=== PATIENT | male | born 1945 | race African-American/Black ===

== ENCOUNTER 2021-01-19 08:15 | Outpatient (CLI) | payer OTHER ==
[2021-01-19 10:53] LABS: SARS-CoV-2 NAA Rapid Test Not Detected (NotDetected)
== END 2021-01-19 08:16 | disposition home or self-care (01) ==
LOC: CSHLAB 08:15
PROVIDERS: ATTEND Surgery
DX: Z20.822 Contact with and (suspected) exposure to COVID-19 (principal); C34.81 Malignant neoplasm of overlapping sites of right bronchus and lung
CPT/HCPCS: U0002

== ENCOUNTER 2021-01-20 06:04 | Day surgery (SDC) | payer OTHER ==
[2021-01-19 09:26] VITALS: BMI 16.0
[2021-01-20] MEDS ORDERED: Lidocaine 1% MPF 2 ML VIAL ONE (07:16)
[2021-01-20] MEDS ORDERED: Fentanyl 100 MCG/2 ML VIAL ONE (07:50)
[2021-01-20] MEDS ORDERED: PROPOFOL 20 ML ONE (07:50)
[2021-01-20] MEDS ORDERED: Lidocaine 1% PF 5 ML VIAL ONE (07:51)
[2021-01-20] MEDS ORDERED: EPINEPHrine 1 MG/ML AMP ONE (07:54)
[2021-01-20] MEDS ORDERED: Bupivacaine 0.25% HCL 30 ML VIAL ONE (07:54)
[2021-01-20] MEDS ORDERED: PHENYLEPHRINE-NS 100 MCG/ML 10 ML SYRINGE ONE (08:28)
[2021-01-20] MEDS ORDERED: Dexamethasone 20 MG/5 ML VIAL ONE (08:29)
[2021-01-20] MEDS ORDERED: HYDROcodone/Acetaminophen 5/325 mg Tablet PO PRN (08:58)
== END 2021-01-20 10:40 | disposition home or self-care (01) ==
LOC: CSHSDC 06:04
PROVIDERS: ATTEND Surgery
DX: C34.81 Malignant neoplasm of overlapping sites of right bronchus and lung (principal); Z87.891 Personal history of nicotine dependence
CPT/HCPCS: 76000; C1788; J0171; J0690; J1100; J1642; J2704; J3010; S0020

== ENCOUNTER 2021-10-07 13:24 | Inpatient (IN) | payer OTHER, MEDICAID ==
[2021-10-07 13:52] LABS: #Basophils 0.1 10x3/uL (0.0-0.2); #Eosinphils 0.5 10x3/uL (0.0-0.5); #Monocytes 2.1 10x3/uL (0.0-1.1); #Neutrophils 9.1 10x3/uL (1.5-8.4); %Basophils 0.4 % (0.0-2.0); %Eosinophils 3.4 % (0.0-6.0); %Lymphocytes 21.1 % (18.0-47.0); %Monocytes 14.2 % (0.0-10.0); %Neutrophils 60.4 % (40.0-75.0); Hemoglobin 9.5 g/dL (13.5-17.5); Mean Corpuscular HGB CONC 35.1 g/dL (32.0-36.0); Mean Corpuscular Hemoglobin 31.9 pg (27.0-33.0); Mean Corpuscular Volume 90.9 fl (81.2-95.1); Mean Platelet Volume 8.6 fl (7.4-10.4); Platelet Count 266 10x3/uL (150-450); RBC Distribution Width 13.6 % (11.5-14.5); Red Blood Cell (RBC) Count 2.98 10x6/uL (4.32-5.72)
[2021-10-07] MEDS ORDERED: Ondansetron PF 4 MG/2 ML Vial ONE (13:54)
[2021-10-07 14:05] LABS: ALT (SGPT) 97 U/L (8-55); AST (SGOT) 208 U/L (5-34); Albumin 3.7 g/dL (3.4-4.8); Alkaline Phosphatase 517 U/L (40-110); Anion Gap 19 mmol/L (10-20); BUN (Urea Nitrogen) 10 mg/dL (8.4-25.7); Bilirubin, Total 1.3 mg/dL (0.2-1.2); Calc. Creatinine Clearance 0 mL/min (70-130); Calcium 9.5 mg/dL (7.8-10.44); Carbon Dioxide 24 mmol/L (23-31); Chloride 95 mmol/L (98-107); Globulin 3.3 g/dL (2.4-3.5); Glucose 62 mg/dL (83-110); Lipase 36 U/L (8-78); Potassium 3.8 mmol/L (3.5-5.1); Sodium 134 mmol/L (136-145)
[2021-10-07 16:03] LABS: Bilirubin Neg (Negative); Blood, Urine 25 (Negative); Clarity Slightly Cloudy (Clear); Glucose, Urine (Dipstick) Normal (Negative); Ketone, Urine 150 mg/dL (Negative); Leukocyte Negative (Negative); Nitrite Negative (Negative); Protein, Urine (Dipstick) Negative (Neg-Trace); Urobilinogen Normal mg/dL (Less than 2)
[2021-10-07] MEDS ORDERED: Cefepime 2 GM VIAL ONE (16:04)
[2021-10-07 16:11] LABS: Bacteria/HPF None Seen HPF (None Seen); Squamous Epithelial 0-3 HPF (0-3); WBC/HPF 0-3 HPF (0-3)
[2021-10-07] MEDS ORDERED: Vancomycin HCl 750 MG in Sodium Chloride 0.9% 250 ML 250 ML IVPB SCH (16:15)
[2021-10-07] MEDS ORDERED: Furosemide 40 MG/4 ML VIAL ONE (17:11)
[2021-10-07 18:12] LABS: Actual Bicarbonate (HCO3a) 16.3 mEq/L (22-28); CO2 Tension 32.9 mmHg (35.0-45.0); Calcium, Ionized (arterial) 1.11 mmol/L (1.12-1.30); Carboxyhemoglobin (COHb) 0.5 gm% (0.0-3.0); Hemoglobin (Hb) 10.8 g/dL (14.0-18.0); O2 Tension (PaO2), arterial 366.4 mmHg (> 70.0); Potassium - ABG Lab 3.7 mmol/L (3.70-5.30); Puncture Site RRA; pH, Arterial 7.31 (7.35-7.45)
[2021-10-07 18:15] LABS: ALV-art Gradient 305.475 mmHg (0-20)
[2021-10-07] MEDS ORDERED: Promethazine HCl 25 MG/ML VIAL ONE (18:19)
[2021-10-07] MEDS ORDERED: methylPREDNISolone Sod Succ/PF 125 MG/2 ML VIAL ONE (19:15)
[2021-10-07] MEDS ORDERED: Ondansetron PF 4 MG/2 ML Vial IVP PRN (19:24)
[2021-10-07] MEDS ORDERED: Acetaminophen 650 MG Suppository PR PRN (19:24)
[2021-10-07] MEDS ORDERED: Acetaminophen 325 MG TAB PO PRN (19:24)
[2021-10-07] MEDS ORDERED: Dextrose 5%-Lactated Ringers 1,000 ML IV SCH (19:30)
[2021-10-07] MEDS ORDERED: Dextrose 50% Abboject 50 ML SYRINGE ONE (20:50)
[2021-10-07] MEDS ORDERED: Famotidine/PF 20 mg/2ml Vial SLOW IVP SCH (21:00)
[2021-10-07 21:43] LABS: Legionella Urinary Ag Negative (Negative); Strep pneumo Urine Ag NEGATIVE (NEGATIVE)
[2021-10-07 21:48] LABS: SARS-CoV-2 NAA Rapid Test Not Detected (NotDetected)
[2021-10-07] MEDS ORDERED: Piperacillin/Tazobactam 3.375 GM in Sodium Chloride 0.9% 100 ML IVPB SCH (22:00)
[2021-10-08] MEDS: methylPREDNISolone Sod Succ 40 MG VIAL IVP SCH ×2 (00:40→06:06)
[2021-10-08] MEDS ORDERED: Dextrose 5 % And 0.9 % NaCl 500 ML IV SCH (03:00)
[2021-10-08 04:41] LABS: Hemoglobin 10.4 g/dL (13.5-17.5); Mean Corpuscular HGB CONC 34.4 g/dL (32.0-36.0); Mean Corpuscular Hemoglobin 31.6 pg (27.0-33.0); Mean Corpuscular Volume 91.8 fl (81.2-95.1); Platelet Count 333 10x3/uL (150-450); RBC Distribution Width 14.2 % (11.5-14.5); Red Blood Cell (RBC) Count 3.29 10x6/uL (4.32-5.72); White Blood Cell (WBC) Count 24.7 10x3/uL (3.5-10.5)
[2021-10-08 04:58] LABS: ALT (SGPT) 84 U/L (8-55); AST (SGOT) 147 U/L (5-34); Albumin 3.9 g/dL (3.4-4.8); Alkaline Phosphatase 482 U/L (40-110); Anion Gap 27 mmol/L (10-20); BUN (Urea Nitrogen) 10 mg/dL (8.4-25.7); Bilirubin, Total 1.2 mg/dL (0.2-1.2); Calc. Creatinine Clearance 41 mL/min (70-130); Calcium 9.5 mg/dL (7.8-10.44); Carbon Dioxide 18 mmol/L (23-31); Chloride 95 mmol/L (98-107); Globulin 3.9 g/dL (2.4-3.5); Glucose 175 mg/dL (83-110); Potassium 3.8 mmol/L (3.5-5.1); Protein, Total 7.8 g/dL (5.8-8.1); Sodium 136 mmol/L (136-145)
[2021-10-08] MEDS: Mometasone/Formoterol 200/5 60 PUFF INH SCH ×2 (05:10→19:29)
[2021-10-08 06:14] LABS: MDiff Complete? YES
[2021-10-08 06:18] LABS: Band 22 % (5-11); Lymphocytes 5 % (21-51); Monocytes 3 % (0-10); Neutrophil 70 % (42-75)
[2021-10-08 06:19] LABS: Anisocytosis SLIGHT = 6-15 cells (100X) (0-5/hpf); Platelet Morphology Comment Appears Adequate
[2021-10-08] MEDS ORDERED: Vancomycin 1 GM in Premix Bag 1 BAG IVPB SCH (08:00)
[2021-10-08] MEDS: Piperacillin/Tazobactam 3.375 GM in Sodium Chloride 0.9% 100 ML IVPB SCH ×2 (08:22→19:58)
[2021-10-08] MEDS: Enoxaparin Sodium 40 MG/0.4 ML SYRINGE SC SCH (08:22)
[2021-10-08 09:38] LABS: Phosphorus 4.2 mg/dL (2.3-4.7)
[2021-10-08 09:44] LABS: Magnesium 0.7 mg/dL (1.6-2.6)
[2021-10-08] MEDS: Magnesium 2 GM/50 ML(in water) 2 GM in Premix Bag 1 BAG IVPB SCH ×4 (10:36→14:52)
[2021-10-08] MEDS ORDERED: predniSONE 20 MG TAB PO SCH (10:45)
[2021-10-08] MEDS ORDERED: Vancomycin HCl 750 MG in Sodium Chloride 0.9% 250 ML 250 ML IVPB SCH (18:00)
[2021-10-08] MEDS: Famotidine/PF 20 mg/2ml Vial SLOW IVP SCH (20:02)
[2021-10-09] MEDS: Piperacillin/Tazobactam 3.375 GM in Sodium Chloride 0.9% 100 ML IVPB SCH ×3 (01:39→18:33)
[2021-10-09 04:49] LABS: Hemoglobin 9.4 g/dL (13.5-17.5); Mean Corpuscular HGB CONC 35.6 g/dL (32.0-36.0); Mean Corpuscular Hemoglobin 31.8 pg (27.0-33.0); Mean Corpuscular Volume 89.2 fl (81.2-95.1); Mean Platelet Volume 8.7 fl (7.4-10.4); Platelet Count 295 10x3/uL (150-450); RBC Distribution Width 14.6 % (11.5-14.5); Red Blood Cell (RBC) Count 2.96 10x6/uL (4.32-5.72); White Blood Cell (WBC) Count 21.3 10x3/uL (3.5-10.5)
[2021-10-09 05:02] LABS: ALT (SGPT) 60 U/L (8-55); AST (SGOT) 94 U/L (5-34); Albumin 3.5 g/dL (3.4-4.8); Alkaline Phosphatase 324 U/L (40-110); Anion Gap 19 mmol/L (10-20); BUN (Urea Nitrogen) 9 mg/dL (8.4-25.7); Calc. Creatinine Clearance 50 mL/min (70-130); Calcium 8.6 mg/dL (7.8-10.44); Carbon Dioxide 24 mmol/L (23-31); Chloride 99 mmol/L (98-107); Globulin 3.5 g/dL (2.4-3.5); Glucose 159 mg/dL (83-110); Sodium 138 mmol/L (136-145)
[2021-10-09 05:49] VITALS: BMI 14.9
[2021-10-09 06:22] LABS: MDiff Complete? YES
[2021-10-09 06:27] LABS: Band 4 % (5-11); Lymphocytes 5 % (21-51); Metamyelocyte 1 % (0-0); Monocytes 6 % (0-10); Neutrophil 84 % (42-75)
[2021-10-09 06:28] LABS: Anisocytosis SLIGHT = 6-15 cells (100X) (0-5/hpf)
[2021-10-09 06:29] LABS: Platelet Morphology Comment Appears Adequate
[2021-10-09] MEDS: Mometasone/Formoterol 200/5 60 PUFF INH SCH ×2 (07:39→19:18)
[2021-10-09] MEDS: predniSONE 20 MG TAB PO SCH (10:04)
[2021-10-09] MEDS: Enoxaparin Sodium 40 MG/0.4 ML SYRINGE SC SCH (10:04)
[2021-10-09] MEDS: Famotidine/PF 20 mg/2ml Vial SLOW IVP SCH (20:21)
[2021-10-09] MEDS: Mirtazapine 15 MG TAB PO SCH (20:22)
[2021-10-09] MEDS: HYDROcodone/Acetaminophen 10/325 mg Tablet PO PRN (20:30)
[2021-10-10] MEDS: Piperacillin/Tazobactam 3.375 GM in Sodium Chloride 0.9% 100 ML IVPB SCH ×3 (01:27→18:36)
[2021-10-10] MEDS: Mometasone/Formoterol 200/5 60 PUFF INH SCH ×2 (07:28→19:05)
[2021-10-10] MEDS: Enoxaparin Sodium 40 MG/0.4 ML SYRINGE SC SCH (08:31)
[2021-10-10] MEDS: predniSONE 20 MG TAB PO SCH (08:31)
[2021-10-10] MEDS: HYDROcodone/Acetaminophen 10/325 mg Tablet PO PRN (17:42)
[2021-10-10] MEDS: Mirtazapine 15 MG TAB PO SCH (20:16)
[2021-10-10] MEDS: Famotidine/PF 20 mg/2ml Vial SLOW IVP SCH (20:16)
[2021-10-11] MEDS: Piperacillin/Tazobactam 3.375 GM in Sodium Chloride 0.9% 100 ML IVPB SCH ×3 (01:51→18:44)
[2021-10-11 04:27] LABS: Hemoglobin 8.3 g/dL (13.5-17.5); Mean Corpuscular HGB CONC 33.1 g/dL (32.0-36.0); Mean Corpuscular Hemoglobin 31.1 pg (27.0-33.0); Mean Platelet Volume 9.1 fl (7.4-10.4); Platelet Count 299 10x3/uL (150-450); RBC Distribution Width 15.1 % (11.5-14.5); Red Blood Cell (RBC) Count 2.67 10x6/uL (4.32-5.72); White Blood Cell (WBC) Count 20.3 10x3/uL (3.5-10.5)
[2021-10-11 04:46] LABS: ALT (SGPT) 34 U/L (8-55); AST (SGOT) 38 U/L (5-34); Albumin 3.2 g/dL (3.4-4.8); Alkaline Phosphatase 204 U/L (40-110); Anion Gap 14 mmol/L (10-20); BUN (Urea Nitrogen) 14 mg/dL (8.4-25.7); Bilirubin, Total 0.6 mg/dL (0.2-1.2); Calc. Creatinine Clearance 58 mL/min (70-130); Calcium 7.9 mg/dL (7.8-10.44); Carbon Dioxide 26 mmol/L (23-31); Chloride 104 mmol/L (98-107); Globulin 2.7 g/dL (2.4-3.5); Glucose 114 mg/dL (83-110); Phosphorus 2.1 mg/dL (2.3-4.7); Potassium 3.4 mmol/L (3.5-5.1); Protein, Total 5.9 g/dL (5.8-8.1); Sodium 141 mmol/L (136-145)
[2021-10-11 05:41] LABS: MDiff Complete? YES
[2021-10-11 05:44] LABS: Band 3 % (5-11); Lymphocytes 7 % (21-51); Monocytes 8 % (0-10); Neutrophil 79 % (42-75); Reactive Lymphocytes 3 % (0-10)
[2021-10-11 05:45] LABS: Anisocytosis SLIGHT = 6-15 cells (100X) (0-5/hpf); Hypochromia SLIGHT = 6-15 cells (100X) (0-5/hpf); Platelet Morphology Comment Appears Adequate; Schistocytes SLIGHT = 2-5 cells (100X) (0-1/hpf)
[2021-10-11] MEDS: Mometasone/Formoterol 200/5 60 PUFF INH SCH ×2 (07:40→22:05)
[2021-10-11] MEDS: predniSONE 20 MG TAB PO SCH (08:44)
[2021-10-11] MEDS: Enoxaparin Sodium 40 MG/0.4 ML SYRINGE SC SCH (08:44)
[2021-10-11] MEDS: HYDROcodone/Acetaminophen 10/325 mg Tablet PO PRN ×2 (09:28→21:37)
[2021-10-11] MEDS ORDERED: Potassium Chloride 20 MEQ TAB PO SCH (13:00)
[2021-10-11] MEDS: Mirtazapine 15 MG TAB PO SCH (21:37)
[2021-10-11] MEDS: Famotidine/PF 20 mg/2ml Vial SLOW IVP SCH (21:38)
[2021-10-12] MEDS: Piperacillin/Tazobactam 3.375 GM in Sodium Chloride 0.9% 100 ML IVPB SCH ×3 (02:54→17:00)
[2021-10-12 05:27] LABS: Anion Gap 12 mmol/L (10-20); BUN (Urea Nitrogen) 15 mg/dL (8.4-25.7); Calc. Creatinine Clearance 59 mL/min (70-130); Calcium 8.2 mg/dL (7.8-10.44); Carbon Dioxide 29 mmol/L (23-31); Chloride 105 mmol/L (98-107); Glucose 100 mg/dL (83-110); Potassium 3.5 mmol/L (3.5-5.1); Sodium 142 mmol/L (136-145)
[2021-10-12] MEDS: Mometasone/Formoterol 200/5 60 PUFF INH SCH ×2 (06:54→18:39)
[2021-10-12] MEDS: HYDROcodone/Acetaminophen 10/325 mg Tablet PO PRN ×2 (09:42→16:58)
[2021-10-12] MEDS: predniSONE 20 MG TAB PO SCH (09:43)
[2021-10-12] MEDS: Enoxaparin Sodium 40 MG/0.4 ML SYRINGE SC SCH (09:44)
[2021-10-12] MEDS: Famotidine/PF 20 mg/2ml Vial SLOW IVP SCH ×2 (09:44→21:45)
[2021-10-12] MEDS: Mirtazapine 15 MG TAB PO SCH (21:44)
[2021-10-13] MEDS: Piperacillin/Tazobactam 3.375 GM in Sodium Chloride 0.9% 100 ML IVPB SCH ×3 (02:02→17:05)
[2021-10-13 04:18] LABS: #Monocytes 1.6 10x3/uL (0.0-1.1); %Basophils 0.1 % (0.0-2.0); %Eosinophils 0.1 % (0.0-6.0); %Lymphocytes 13.5 % (18.0-47.0); %Neutrophils 76.3 % (40.0-75.0); Hemoglobin 8.6 g/dL (13.5-17.5); Mean Corpuscular HGB CONC 33.1 g/dL (32.0-36.0); Mean Corpuscular Hemoglobin 31.4 pg (27.0-33.0); Mean Corpuscular Volume 94.9 fl (81.2-95.1); Mean Platelet Volume 9.1 fl (7.4-10.4); Platelet Count 371 10x3/uL (150-450); RBC Distribution Width 15.3 % (11.5-14.5); Red Blood Cell (RBC) Count 2.74 10x6/uL (4.32-5.72); White Blood Cell (WBC) Count 18.3 10x3/uL (3.5-10.5)
[2021-10-13 05:11] LABS: Anion Gap 14 mmol/L (10-20); BUN (Urea Nitrogen) 17 mg/dL (8.4-25.7); Calc. Creatinine Clearance 54 mL/min (70-130); Calcium 8.1 mg/dL (7.8-10.44); Carbon Dioxide 28 mmol/L (23-31); Chloride 102 mmol/L (98-107); Glucose 107 mg/dL (83-110); Magnesium 1.7 mg/dL (1.6-2.6); Potassium 3.8 mmol/L (3.5-5.1); Sodium 140 mmol/L (136-145)
[2021-10-13] MEDS: Mometasone/Formoterol 200/5 60 PUFF INH SCH ×2 (07:24→19:04)
[2021-10-13] MEDS: Famotidine/PF 20 mg/2ml Vial SLOW IVP SCH ×2 (08:40→19:55)
[2021-10-13] MEDS: predniSONE 20 MG TAB PO SCH (08:40)
[2021-10-13] MEDS: HYDROcodone/Acetaminophen 10/325 mg Tablet PO PRN ×2 (08:41→19:54)
[2021-10-13] MEDS: Enoxaparin Sodium 40 MG/0.4 ML SYRINGE SC SCH (08:42)
[2021-10-13] MEDS: Mirtazapine 15 MG TAB PO SCH (19:55)
[2021-10-14] MEDS: Piperacillin/Tazobactam 3.375 GM in Sodium Chloride 0.9% 100 ML IVPB SCH ×2 (03:04→09:14)
[2021-10-14 04:45] LABS: Hemoglobin 8.1 g/dL (13.5-17.5); Mean Corpuscular HGB CONC 33.2 g/dL (32.0-36.0); Mean Corpuscular Hemoglobin 31.6 pg (27.0-33.0); Mean Corpuscular Volume 95.3 fl (81.2-95.1); Mean Platelet Volume 9.3 fl (7.4-10.4); Platelet Count 398 10x3/uL (150-450); RBC Distribution Width 15.7 % (11.5-14.5); Red Blood Cell (RBC) Count 2.56 10x6/uL (4.32-5.72); White Blood Cell (WBC) Count 20.1 10x3/uL (3.5-10.5)
[2021-10-14 04:52] LABS: ALT (SGPT) 22 U/L (8-55); AST (SGOT) 19 U/L (5-34); Albumin 2.9 g/dL (3.4-4.8); Alkaline Phosphatase 167 U/L (40-110); Anion Gap 12 mmol/L (10-20); BUN (Urea Nitrogen) 20 mg/dL (8.4-25.7); Bilirubin, Total 0.2 mg/dL (0.2-1.2); Calc. Creatinine Clearance 56 mL/min (70-130); Calcium 8.2 mg/dL (7.8-10.44); Carbon Dioxide 30 mmol/L (23-31); Chloride 104 mmol/L (98-107); Globulin 2.5 g/dL (2.4-3.5); Glucose 109 mg/dL (83-110); Potassium 3.4 mmol/L (3.5-5.1); Protein, Total 5.4 g/dL (5.8-8.1); Sodium 143 mmol/L (136-145)
[2021-10-14 05:26] LABS: MDiff Complete? YES
[2021-10-14 05:30] LABS: Band 2 % (5-11); Eosinophils 1 % (0-10); Lymphocytes 17 % (21-51); Monocytes 6 % (0-10); Neutrophil 74 % (42-75)
[2021-10-14 05:31] LABS: Platelet Morphology Comment Appears Adequate; RBC Morphology Normal
[2021-10-14] MEDS: HYDROcodone/Acetaminophen 10/325 mg Tablet PO PRN (07:08)
[2021-10-14] MEDS: Mometasone/Formoterol 200/5 60 PUFF INH SCH (07:29)
[2021-10-14] MEDS: predniSONE 20 MG TAB PO SCH (09:16)
[2021-10-14] MEDS: Famotidine/PF 20 mg/2ml Vial SLOW IVP SCH (09:16)
[2021-10-14] MEDS: Enoxaparin Sodium 40 MG/0.4 ML SYRINGE SC SCH (09:16)
[2021-10-14 11:34] VITALS: BP 112/57; TEMP 98.4
[2021-10-14] MEDS ORDERED: Amoxicillin/Potassium Clav 875 MG TAB PO SCH (21:00)
== END 2021-10-14 13:00 | disposition home or self-care (01) | DRG 871 ==
LOC: CSHERS 13:24 → CSHIMCU 18:49 → CSHTELE 10-08 16:45
PROVIDERS: ADMIT Hospitalist; ATTEND Student in an Organized Health Care Education/Training Program
PROC: 3E03329 Introduction of Other Anti-infective into Peripheral Vein, Percutaneous Approach (ICD-10-PCS; principal; 2021-10-07)
PROC: 5A09357 Assistance with Respiratory Ventilation, Less than 24 Consecutive Hours, Continuous Positive Airway Pressure (ICD-10-PCS; 2021-10-07)
PROC: 5A09357 Assistance with Respiratory Ventilation, Less than 24 Consecutive Hours, Continuous Positive Airway Pressure (ICD-10-PCS; 2021-10-08)
DX: A41.9 Sepsis, unspecified organism (principal); K72.00 Acute and subacute hepatic failure without coma; J96.21 Acute and chronic respiratory failure with hypoxia; J18.9 Pneumonia, unspecified organism; J69.0 Pneumonitis due to inhalation of food and vomit; C34.90 Malignant neoplasm of unspecified part of unspecified bronchus or lung; C79.51 Secondary malignant neoplasm of bone; J44.1 Chronic obstructive pulmonary disease with (acute) exacerbation; E44.0 Moderate protein-calorie malnutrition; Z68.1 Body mass index [BMI] 19.9 or less, adult; R19.8 Other specified symptoms and signs involving the digestive system and abdomen; Z51.5 Encounter for palliative care; Z66 Do not resuscitate; D63.8 Anemia in other chronic diseases classified elsewhere; R79.89 Other specified abnormal findings of blood chemistry; R65.20 Severe sepsis without septic shock; G89.29 Other chronic pain; T38.0X5A Adverse effect of glucocorticoids and synthetic analogues, initial encounter; K52.9 Noninfective gastroenteritis and colitis, unspecified; T45.1X5A Adverse effect of antineoplastic and immunosuppressive drugs, initial encounter; E87.6 Hypokalemia; K37 Unspecified appendicitis; Z20.822 Contact with and (suspected) exposure to COVID-19; Z92.21 Personal history of antineoplastic chemotherapy; Z99.81 Dependence on supplemental oxygen; Z79.899 Other long term (current) drug therapy; Z87.891 Personal history of nicotine dependence; Z72.89 Other problems related to lifestyle
CPT/HCPCS: 36415; 36416; 36600; 51701; 71045; 71275; 74177; 80048; 80053; 81003; 81015; 82805; 83605; 83690; 83735; 83880; 84100; 84145; 85025; 87040; 87045; 87046; 87070; 87205; 87324; 87427; 87449; 87899; 93005; 93306; 94640; 94660; 94664; 94667; 94668; 94760; 96365; 96367; 96374; 96375; J0692; J1650; J1940; J1956; J2405; J2543; J2550; J2920; J2930; J3370; J3475; J3490; J7042; J7050; J7512; J7620; J7999; S0028

== ENCOUNTER 2021-12-07 17:29 | Emergency (ER) | payer OTHER, MEDICAID ==
[2021-12-07 18:19] LABS: #Eosinphils 0.4 10x3/uL (0.0-0.5); #Monocytes 0.9 10x3/uL (0.0-1.1); #Neutrophils 4.2 10x3/uL (1.5-8.4); %Basophils 0.5 % (0.0-2.0); %Eosinophils 5.5 % (0.0-6.0); %Lymphocytes 26.4 % (18.0-47.0); %Monocytes 11.5 % (0.0-10.0); %Neutrophils 55.7 % (40.0-75.0); Hemoglobin 11.1 g/dL (13.5-17.5); Mean Corpuscular HGB CONC 35.2 g/dL (32.0-36.0); Mean Corpuscular Hemoglobin 31.5 pg (27.0-33.0); Mean Corpuscular Volume 89.5 fl (81.2-95.1); Mean Platelet Volume 9.3 fl (7.4-10.4); Platelet Count 255 10x3/uL (150-450); RBC Distribution Width 13.4 % (11.5-14.5); Red Blood Cell (RBC) Count 3.52 10x6/uL (4.32-5.72); White Blood Cell (WBC) Count 7.6 10x3/uL (3.5-10.5)
[2021-12-07 18:30] LABS: Actual Bicarbonate (HCO3v) 22 mEq/L (22-28); Base Excess -4.1 mEq/L (-2.0 to +3.0); Calcium, Ionized (venous) 1.08 mmol/L (1.16-1.32); Chloride (VBG) 92 mmol/L (98-106); Critical Notified By: CP.PH; Hemoglobin (Hb) 12.3 g/dL (12.6-17.4); Potassium (VBG) 3.83 mmol/L (3.70-5.30); Puncture Site Other Site; RapidComm Collect By CSUC.CNC; Sodium 126.8 mmol/L (133-146)
[2021-12-07 18:32] LABS: ALT (SGPT) 116 U/L (8-55); AST (SGOT) 254 U/L (5-34); Albumin 3.6 g/dL (3.4-4.8); Alkaline Phosphatase 1341 U/L (40-110); Anion Gap 19 mmol/L (10-20); BUN (Urea Nitrogen) 33 mg/dL (8.4-25.7); Bilirubin, Total 0.9 mg/dL (0.2-1.2); CK (CPK) 293 U/L (30-200); Calc. Creatinine Clearance 0 mL/min (70-130); Carbon Dioxide 25 mmol/L (23-31); Chloride 90 mmol/L (98-107); Estimated GFR 63; Globulin 3.1 g/dL (2.4-3.5); Glucose 118 mg/dL (83-110); Lipase 37 U/L (8-78); Magnesium 1.1 mg/dL (1.6-2.6); Potassium 3.9 mmol/L (3.5-5.1); Protein, Total 6.7 g/dL (5.8-8.1); Sodium 130 mmol/L (136-145)
[2021-12-07 18:37] LABS: SARS-CoV-2 NAA Rapid Test Not Detected (NotDetected)
[2021-12-07 21:03] LABS: Bilirubin Neg (Negative); Blood, Urine 10 (Negative); Clarity Clear (Clear); Glucose, Urine (Dipstick) 100 mg/dL (Negative); Ketone, Urine 50 mg/dL (Negative); Leukocyte Negative (Negative); Nitrite Negative (Negative); Protein, Urine (Dipstick) Negative (Neg-Trace); Specific Gravity, Urine 1.015 (1.002-1.036); Urobilinogen Normal mg/dL (Less than 2)
[2021-12-07 21:16] LABS: Bacteria/HPF Rare-Few HPF (None Seen); RBC/HPF 0-3 HPF (0-3); Squamous Epithelial 0-3 HPF (0-3); WBC/HPF 0-3 HPF (0-3)
[2021-12-07] MEDS ORDERED: Ondansetron PF 4 MG/2 ML Vial ONE (22:56)
== END 2021-12-07 23:15 | disposition short-term general hospital (02) ==
LOC: CSHERS 17:29
DX: E83.42 Hypomagnesemia (principal); R62.7 Adult failure to thrive; E87.1 Hypo-osmolality and hyponatremia; E16.2 Hypoglycemia, unspecified; J44.9 Chronic obstructive pulmonary disease, unspecified
CPT/HCPCS: 36415; 36416; 71045; 80053; 81003; 81015; 82010; 82550; 82805; 83605; 83690; 83735; 83880; 84484; 85025; 87086; 93005; 96374; J2405; U0002